=== PATIENT | female | born 1980 | race Caucasian/White ===

== ENCOUNTER 2016-07-22 12:30 | Outpatient (CLI) | payer BC | END 2016-07-22 23:00 | LOC: LAB SRH 12:30 | DX: Z00.00 Encounter for general adult medical examination without abnormal findings (principal); Z13.228 Encounter for screening for other metabolic disorders; Z13.21 Encounter for screening for nutritional disorder | CPT/HCPCS: 90074; 90100; 91096; 91286; 91504; 91505; 92690; 93045; 93140; 95059 ==